=== PATIENT | female | born 1990 | race Caucasian/White ===

== ENCOUNTER 2020-05-15 09:47 | Emergency (ER) | payer SELFPAY ==
--- NOTE | 2020-05-15 09:55 | ED.SKABFB ---
HPI - Skin/Abscess/Foreign Bdy General Chief complaint: Skin/Abscess/Foreign Body Stated complaint: sores on left leg Time Seen by Provider: 05/15/20 10:05 Source: patient and RN notes reviewed History of Present Illness HPI narrative: Patient is a 30-year-old female who presents the urgent care with complaints of a painful itchy rash to the back of the left leg. Patient states that she noticed it on Friday after having some pain to the area and thought that it was a bug bite . Patient states that it then blistered last night and is still very itchy. Patient states that she has been putting cortisone on the area without any improvement. No other acute complaints. No acute distress noted. Patient read the plan of care. Related Data Allergies Allergy/AdvReac Type Severity Reaction Status Date / Time No Known Allergies Allergy Verified 05/15/20 10:07 Review of Systems Review of Systems: Narrative: CONSTITUTIONAL: Denies fever, chills, or sweats. EYES: Denies visual changes, redness, or discharge. ENT: Denies rhinorrhea, congestion, sore throat, or otalgia. CARDIOVASCULAR: Denies chest pain, palpitations, or edema. RESPIRATORY: Denies cough or dyspnea. GASTROINTESTINAL: Denies abdominal pain, nausea, vomiting, or diarrhea. GENITOURINARY: Denies dysuria or hematuria. SKIN: Reports of an itchy blistery rash to the back of the left leg MUSCULOSKELETAL: Denies back pain, joint pain, or myalgia. NEUROLOGIC: Denies headache, numbness, or weakness. All other systems reviewed are negative, except as documented in HPI. PMFSH Comments At the time of my signature, I reviewed and agree with the nursing past medical, surgical, social, and family history. There is no relevant family history pertinent to the patient complaint. Exam Narrative: Exam Narrative: GENERAL: This is a well-nourished, well-developed patient, in no apparent distress. HEAD: normocephalic, atraumatic. EYES: PERRL. Sclera clear/white. Vision is grossly intact. EARS: External ears normal NOSE: External nose normal with no obvious nasal discharge, nares without redness, no rhinorrhea. THROAT: Mucous membranes moist NECK: Neck supple SKIN: 2 cm x 1 cm area of blistering erythemic irritation noted to the posterior aspect of the left leg NEURO: awake, alert, and oriented to person, place and time. There were no obvious focal neurologic abnormalities. EXTREMITIES: No clubbing, cyanosis, or edema. Course Vital Signs Vital signs: Vital Signs Temperature 99.6 F 05/15/20 09:56 Pulse Rate 87 05/15/20 09:56 Respiratory Rate 16 05/15/20 09:56 Blood Pressure 137/78 05/15/20 09:56 Pulse Oximetry 100 05/15/20 09:56 Temperature 99.6 F 05/15/20 09:56 Pulse Rate 87 05/15/20 09:56 Respiratory Rate 16 05/15/20 09:56 Blood Pressure 137/78 05/15/20 09:56 Pulse Oximetry 100 05/15/20 09:56 Reviewed MDM - Skin/Abscess/Foreign Bdy MDM Narrative Medical decision making narrative: Advised the patient to complete antiviral medication as prescribed. Use antiviral cream to the area as directed. Make sure to eat and drink with the oral medication. Treating to cover shingles, however if the area does not improve or becomes increase in size, irritation, redness, tenderness?follow-up immediately. Highly unlikely that the area is staph infection, but if the antiviral is not improving the area it should be reevaluated. Working should not be a problem at the areas covered with long pants and you are not exposing the rash to others. Follow-up with your PCP within 2 to 5 days or for worsening symptoms or failure to improve. Differential Diagnosis Differential diagnosis: Likely abscess of skin or subcutaneous tissue, herpes zoster, cellulitis, insect bites, impetigo and contact dermatitis Critical Care Time Critical Care Time Critical Care Time: No Discharge Plan Discharge Clinical Impression: Shingles rash Qualifiers: Herpes zoster complications: without c
[2020-05-15 09:56] VITALS: BP 137/78; PULSE 87; RESP 16; TEMP 37.6; O2SAT 100
== END 2020-05-15 10:22 | disposition home or self-care (01) ==
PROVIDERS: Emergency Provider Nurse Practitioner Family
DX: B02.9 Zoster without complications (principal)
CPT/HCPCS: 99213; G0463

== ENCOUNTER 2022-11-06 08:21 | Emergency (ER) | payer SELFPAY ==
[2022-11-06 08:30] VITALS: BP 113/70; PULSE 88; RESP 18; TEMP 37.2; O2SAT 97
--- NOTE | 2022-11-06 08:31 | ED.URI ---
HPI - URI/Sore Throat General Chief Complaint: Upper Respiratory Infection Stated Complaint: headache and tight chest Time Seen by Provider: 11/06/22 08:31 Source: patient and RN notes reviewed History of Present Illness HPI Narrative: patient is to female presents to urgent care with complaints of headache, chest tightness, body aches sinus pressure. Patient states it has been ongoing for approximately 5 days and she has idania taking Mucinex and Advil. Denies any ill exposures. Denies any known fevers. No other acute complaints. No acute distress noted. Patient aware of the plan of care. Some parts of this dictation were generated by voice recognition software and may contain typographical and/or grammatical inaccuracies. Related Data Allergies Allergy/AdvReac Type Severity Reaction Status Date / Time sulfamethoxazole AdvReac Intermediate Nausea and Verified 11/06/22 08:44 [From Bactrim] Vomiting trimethoprim [From Bactrim] AdvReac Intermediate Nausea and Verified 11/06/22 08:44 Vomiting Review of Systems Review of Systems: CONSTITUTIONAL: Denies fever, chills, or sweats. EYES: Denies visual changes, redness, or discharge. ENT: Reports sinus pressure congestion CARDIOVASCULAR: Denies chest pain, palpitations, or edema. RESPIRATORY: with a chest tightness/congestion GASTROINTESTINAL: Denies abdominal pain, nausea, vomiting, or diarrhea. GENITOURINARY: Denies dysuria or hematuria. SKIN: Denies rash or itching. MUSCULOSKELETAL: Denies back pain, joint pain, or myalgia. NEUROLOGIC: reports headache All other systems reviewed are negative, except as documented in HPI. PMFSH Comments At the time of my signature, I reviewed and agree with the nursing past medical, surgical, social, and family history. There is no relevant family history pertinent to the patient complaint. Exam Narrative: GENERAL: This is a well-nourished, well-developed patient, in no apparent distress. HEAD: normocephalic, atraumatic. EYES: PERRL. Sclera clear/white. Vision is grossly intact. EARS: External ears normal, auditory canals clear and without drainage, mild eustachian tube dysfunction.TMs normal without perforation. Hearing grossly intact. NOSE: External nose normal with no obvious nasal discharge, nares without redness, no rhinorrhea. THROAT: Mucous membranes moist, posterior pharynx clear. moderate postnasal drainage NECK: Neck supple, non-tender without lymphadenopathy CARDIOVASCULAR: Regular rate and rhythm without murmurs, gallops, or rubs. RESPIRATORY: scant expiratory wheeze right upper lobe SKIN: warm, intact with no suspicious lesions or rash, good texture and turgor. NEURO: awake, alert, and oriented to person, place and time. There were no obvious focal neurologic abnormalities. EXTREMITIES: No clubbing, cyanosis, or edema. Course Course Level of Care: Express Care Visit Vital Signs Vital signs: Vital Signs Temperature 99 F 11/06/22 08:30 Pulse Rate 88 11/06/22 08:30 Respiratory Rate 18 11/06/22 08:30 Blood Pressure 113/70 11/06/22 08:30 Pulse Oximetry 97 11/06/22 08:30 Oxygen Delivery Room Air 11/06/22 08:30 Temperature 99 F 11/06/22 08:30 Pulse Rate 88 11/06/22 08:30 Respiratory Rate 18 11/06/22 08:30 Blood Pressure 113/70 11/06/22 08:30 Pulse Oximetry 97 11/06/22 08:30 Oxygen Delivery Room Air 11/06/22 08:30 Reviewed MDM - URI/Sore Throat MDM Narrative Medical decision making narrative: Advised patient complete the steroid regimen as prescribed. Be sure to eat and drink with medication. Continue Tylenol/ibuprofen / Excedrin as needed for headache. Use Benadryl and Flonase prior to bedtime for congestion. Use a humidifier at night. Follow-up with your PCP within 2-5 days or for worsening symptoms or failure to improve. Differential Diagnosis Differential diagnosis: Likely upper respiratory infection, croup, otitis media, sinusitis, viral infection, bronc
== END 2022-11-06 08:55 | disposition home or self-care (01) ==
PROVIDERS: Emergency Provider Nurse Practitioner Family
DX: J32.9 Chronic sinusitis, unspecified (principal)
CPT/HCPCS: 99213; G0463